=== PATIENT | male | born 1985 | race Two or more races ===

== ENCOUNTER 2020-02-27 07:00 | Day surgery (SDC) | payer SELFPAY ==
[2020-02-27] MEDS ORDERED: Lidocaine 1% 30 ML SDV ONE (07:03)
[2020-02-27] MEDS ORDERED: Bupivacaine 0.5% 30 ML SDV ONE (07:03)
[2020-02-27] MEDS ORDERED: Sodium Chloride 0.9% 10 ML Syringe FLUSH PRN (07:38)
[2020-02-27] MEDS ORDERED: Lidocaine 1%/Sod Bicarbonate in NS 8.4% 1 ML Syringe IDERM PRN (07:38)
[2020-02-27] MEDS ORDERED: Lactated Ringers 1,000 ML IV SCH (07:45)
--- NOTE | 2020-02-27 07:52 | PCM.PREANE ---
Preanesthetic Assessment - Anesthesia/Transfusion/Family Hx Anesthesia History: No Prior Anesthesia - Review of Systems General: No Symptoms Pulmonary: No Symptoms Cardiovascular: No Symptoms Gastrointestinal: No Symptoms Neurological: No Symptoms Other: Reports: None - Physical Assessment NPO Status Date: 02/26/20 NPO Status Time: 19:30 Vital Signs: Last Vital Signs Temp 97.1 F 02/27/20 06:55 Pulse 88 02/27/20 06:55 Resp 16 02/27/20 06:55 BP 129/83 02/27/20 06:55 Pulse Ox 97 02/27/20 06:55 Height: 1.73 m Weight: 151.046 kg ASA Class: 3 Mental Status: Alert & Oriented x3 Airway Class: Mallampati = 1 Dentition: Reports: Normal Dentition Thyro-Mental Finger Breadths: 3 Mouth Opening Finger Breadths: 3 ROM/Head Extension: Full Lungs: Clear to Auscultation, Normal Respiratory Effort Cardiovascular: Regular Rate, Regular Rhythm - Allergies Allergies/Adverse Reactions: Allergies Allergy/AdvReac Type Severity Reaction Status Date / Time No Known Allergies Allergy Verified 02/27/20 07:38 - Acknowledgements Anesthesia Type Planned: General Anesthesia, Regional Block (popliteal), MAC Pt an Appropriate Candidate for the Planned Anesthesia: Yes Alternatives and Risks of Anesthesia Discussed w Pt/Guardian: Yes Pt/Guardian Understands and Agrees with Anesthesia Plan: Yes PreAnesthesia Questionnaire Endocrine/Metabolic History: Reports: Obesity/BMI 30+ (Morbid obesity) - SUBSTANCE USE Smoking Status *Q: Current Every Day Smoker - CURRENT (IN HOUSE) MEDS Current Meds: Current Medications Lactated Ringer's (Ringers, Lactated) 1,000 mls @ 125 mls/hr IV ASDIRECTED DESMOND Stop: 02/27/20 23:00 Lidocaine/Sodium Bicarbonate (Buffered Lidocaine 1% In Ns 8.4%) 0.25 ml IDERM ONETIME PRN PRN Reason: Prior to IV Start Stop: 02/27/20 18:00 Sodium Chloride (Saline Flush) 10 ml FLUSH ASDIRECTED PRN PRN Reason: Keep Vein Open Stop: 02/27/20 18:00 Discontinued Medications Bupivacaine HCl (Marcaine 0.5%) Confirm Administered Dose 30 ml .ROUTE .STK-MED ONE Stop: 02/27/20 07:04 Lidocaine HCl (Xylocaine-Mpf 1%) Confirm Administered Dose 30 ml .ROUTE .STK-MED ONE Stop: 02/27/20 07:04
[2020-02-27] MEDS ORDERED: fentaNYL 100 MCG/2 ML SDV IVPUSH PRN (09:05)
[2020-02-27] MEDS ORDERED: HYDROmorphone 0.5 MG/0.5 ML Syringe IVPUSH PRN (09:05)
--- NOTE | 2020-02-27 09:14 | PCM.PRNOTE ---
- Free Text/Narrative Note: Postoperative regional pain control requested by surgeon. Pre-op Dx: Left big toe bunion Surgery : Left lapidus bunionectomy,Left 5th Tailor's bunionectomy, Lt 2nd osteotomy with hammertoe correction and K-wires Anesthesia Procedure: Left Popliteal block with U/S guidance Requesting physician: Dr. Dennis Hernandez Risks and benefits discussed with the patient preoperatively including infection, bleeding, incomplete or failed block, possible nerve damage, local anesthetic toxicity. Chart reviewed, VS stable. Permit signed. Patient in PACU holding area, stable , alert and awake. Time out performed at 07:30. Oxygen 3L via NC. Left lateral thigh area above the knee was prepped with Chloraprep x 1 and allowed to dry. Midazolam IV 4 mg given incrementally. Under aseptic technique, the Left common peroneal and Left tibial nerves were identified under ultrasound prior to needle insertion. Local infiltration with 1% Lidocaine. 4" Stimuplex needle #22 G was inserted under US guidance. Neuromuscular response was elicited with noted foot twitch at 0.6 mA. Under direct visualization of needle tip the injection of 0.5% Ropivacaine with 1:200k epinephrine, with added 6 mg of Dexamethasone and 100 mcg of Clonidine, total of 36 mls in divided doses, maintaining negative aspiration was completed without problems. No local anesthetic toxicity was noted. Patient is awake, stable and tolerated the procedure well. Please see attached U/S images Times: Time out 07:30 Start 07:32 Stop: 07:45
--- NOTE | 2020-02-27 11:43 | PCM.OPNOTE ---
- General Post-Op/Procedure Note Date of Surgery/Procedure: 02/27/20 Operative Procedure(s): 1.) Lapidus Bunionectomy with internal fixation plate, screws, LEFT 1st M-C joint. 2.) Yariel Osteotomy & internal fixation, LEFT 2nd metatarsal. 3.) Arthroplasty LEFT 2nd PIPJ with K-wire fixation. 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 2.) Subluxation, LEFT 2nd toe @ MTPJ. 3.) Hammertoe deformity, LEFT 2nd toe. 4.) Tailor's Bunion deformity, LEFT 5th MTPJ Anesthesia Technique: General LMA, Local, Regional Block Primary Surgeon: Dennis Hernandez II Anesthesia Provider: Jose Guadalupe Dodd EBAnibal in mLs: 200 Condition: Good Free Text/Narrative:: Patient left the OR for recovery with vital signs stable & vascular status intact to digits 1-5 LEFT foot.
--- NOTE | 2020-02-27 11:51 | PCM.POSTAN ---
POST ANESTHESIA ASSESSMENT - MENTAL STATUS Mental Status: Alert, Oriented - VITAL SIGNS Vital Signs: Last Vital Signs Temp 97.9 F 02/27/20 11:39 Pulse 74 02/27/20 07:50 Resp 20 02/27/20 11:39 BP 113/85 02/27/20 11:39 Pulse Ox 94 L 02/27/20 11:39 - RESPIRATORY Respiratory Status: Respiratory Rate WNL, Airway Patent, O2 Saturation Stable, Supplemental Oxygen - CARDIOVASCULAR CV Status: Pulse Rate WNL, Blood Pressure Stable - GASTROINTESTINAL GI Status: No Symptoms - PAIN Pain Score: 0 - POST OP HYDRATION Hydration Status: Adequate & Stable
--- NOTE | 2020-02-27 13:23 | PCM48HPAN ---
Post Anesthesia Note - EVALUATION WITHIN 48HRS OF ANESTHETIC Vital Signs in Normal Range: Yes Patient Participated in Evaluation: Yes Respiratory Function Stable: Yes Airway Patent: Yes Cardiovascular Function Stable: Yes Hydration Status Stable: Yes Pain Control Satisfactory: Yes Nausea and Vomiting Control Satisfactory: Yes Mental Status Recovered: Yes Vital Signs: Last Vital Signs Temp 98.3 F 02/27/20 12:22 Pulse 95 02/27/20 12:59 Resp 16 02/27/20 12:59 BP 110/67 02/27/20 12:59 Pulse Ox 93 L 02/27/20 12:22 - COMMENTS/OBSERVATIONS Free Text/Narrative:: No anesthesia complications noted. Patient is ready to be discharged
--- NOTE | 2020-02-27 18:23 | OR ---
DATE OF OPERATION: 02/27/2020 SURGEON: Dennis Hernandez II, DPM LOCATION: [facility]. ANESTHESIA: LMA general with regional and local block about the left lower extremity. ANESTHESIA PROVIDER: Jose Guadalupe Dodd CRNA HEMOSTASIS: Left pneumatic thigh tourniquet at 350 mmHg pressure. PREOPERATIVE DIAGNOSIS: 1. Painful symptomatic severe hallux abductovalgus, bunion deformity; left foot. 2. Painful symptomatic hammertoe deformity, left second toe, with dislocation at the metatarsophalangeal joint. 3. Painful symptomatic tailor's bunion deformity, left fifth metatarsal. POSTOPERATIVE DIAGNOSIS: 1. Painful symptomatic severe hallux abductovalgus, bunion deformity; left foot. 2. Painful symptomatic hammertoe deformity, left second toe, with dislocation at the metatarsophalangeal joint. 3. Painful symptomatic tailor's bunion deformity, left fifth metatarsal. OPERATION PERFORMED: 1. Lapidus bunionectomy with internal plate and screw fixation, left first metatarsocuneiform joint. 2. Yariel osteotomy, left second metatarsal, with internal fixation, left foot. 3. Arthroplasty, left second toe, with proximal interphalangeal joint arthrodesis and K-wire stabilization. 4. Tailor's bunionectomy, left fifth metatarsophalangeal joint. DESCRIPTION OF PROCEDURE: Upon arrival on admission to the hospital, the patient was examined and cleared for surgery by the assigned anesthesia provider. IV access was obtained in the preoperative area after which the patient was brought to the operating room having received 3 g of Ancef IV piggyback. The patient was then assisted with transfer from a gurney onto the operating room table in the supine position. Popliteal block with 30 mL ropivacaine was administered to the left lower extremity by Anesthesia with utilizing an ultrasound-guided image. The patient was given a combination of sedations and was adequately sedated before being intubated for LMA general anesthesia. The patient received 10 mL of 1:1 mixture 1% lidocaine plain and 0.5% Marcaine plain injected about the operatory sites in the form of a local infiltrative block about the left foot. The left lower extremity was then wrapped with cotton Webril padding about the left thigh where a large pneumatic thigh tourniquet was placed. The left lower extremity was then prepped and draped in usual aseptic manner. Left lower extremity was then elevated and exsanguinated with the use of an Esmarch bandage before inflating the pneumatic ankle tourniquet to 350 mmHg pressure. Esmarch bandage was removed. Left lower extremity was placed to back to the level of the operating room table. Attention was first directed to the first metatarsophalangeal joint where an incision beginning at that point was then carried proximally overlying the first metatarsocuneiform joint. This was a controlled depth skin incision taken down to the level of subcutaneous structures with care taken to retract the vital neurovascular structures within the area as well as to cauterize and/or ligate all superficial bleeders as deemed necessary. Continuous soft tissue dissection was then taken down to the first metatarsophalangeal joint and the procedural decompression as well as removal of the adhesive sesamoids was undertaken utilizing a McGlamry scoop elevator after adequate soft tissue dissection was undertaken and a linear capsulotomy paralleling that of the skin was performed as well. A lateral capsular release was done after dissection of the first interspace and release of the adductor tendon was taken care of at the base of the proximal phalanx of the hallux. After this had been sufficiently performed, the wound was copiously lavaged with sterile saline solution and the medial eminence to the first metatarsal was then resected. Attention was then directed to the first metatarsocuneiform joint where a transverse incision allowed for exposure of this joint, which was then resected with a power sagittal saw and also corrected to reduce the intermetatarsal angle between the first and second metatarsals. The base of these resected surfaces was then fenestrated with a 0.062 K-wire Steinmann pin to fenestrate the plantar surface and the articular cartilage and stimulate subchondral bleeding. After this had been finished, the wound was once again copiously lavaged with sterile saline solution and reduction was achieved with a tenaculum while a 0.062 wire was utilized to hold the corrected position. An Coleman CP plate was selected and was placed about the arthrodesis site while a small recessed hole was created into the medial aspect of the first metatarsal to allow for the plate to sit comfortably up to bone. The lag screw was then inserted after proximal locking screws had been placed to bring about rigid internal fixation compression. An additional amount of IM correction was achieved by utilizing a cannulated headless fixation screw from medial to lateral across the distal aspect of the first and second metatarsals. The wound was once again copiously lavaged with sterile saline solution and attention was directed to the left second toe where a curvilinear incision was created overlying the left second PIPJ and carried distally by a centimeter to the second MTPJ. These were controlled depth skin incisions taken down to the level of the subcutaneous structures with care taken to retract the vital neurovascular structures within the area as well as to cauterize and/or ligate all superficial bleeders as deemed necessary. Continuous soft tissue dissection was then taken down to the MTPJ and after the extensor digitorum longus tendon was released at the PIPJ and dissected proximally, then the head of the proximal phalanges in the base of the intermediate phalanges were resected with the power sagittal saw. Likewise, a McGlamry scoop elevator was utilized to free up plantar soft tissue adhesions to the left second metatarsal head and a Yariel osteotomy was created and then fixated with a 2.5 cannulated screw measuring 12 mm across the screw site. Once again, the wound was copiously lavaged with sterile saline solution and closure was then undertaken with the use of 3-0 and 4-0 Vicryl in the deep and subcuticular layer while the skin would be reapproximated utilizing gem. A 4 cm curvilinear incision was created over the lateral aspect of the left fifth metatarsophalangeal joint and a controlled depth skin incision was taken down to the level of the subcutaneous structures with care taken to retract the vital neurovascular structures within the area as well as to cauterize and ligate all superficial bleeders as deemed necessary. Continuous soft tissue dissection was then taken down to the level of the tibial capsular structures where a lateral eminence to the fifth metatarsal head was resected. The wound was copiously lavaged with sterile saline solution and the wound site was then reapproximated utilizing 3-0 Vicryl. The skin and subcuticular levels to all incisions were then reapproximated utilizing 4-0 Vicryl and the skin was reapproximated utilizing gem and/or 4-0 nylon. The patient received an additional 30 mL of 0.5% Marcaine plain injected about the operatory site. The dressings would then consist of Betadine-soaked Adaptic gauze, 4 x 4 gauze, Radha, and they were in place after deflation of the pneumatic thigh tourniquet after 100 minutes of anesthesia. The patient would then leave the OR with vital signs remaining stable and vascular status intact in digits 1 through 5 of the left foot. There were no apparent or obvious complications. The patient received no written or oral postop instructions as well as postoperative pain medications. The patient will be nonweightbearing with crutches and a posterior splint was placed about the left lower extremity prior to the patient leaving the OR. In the OR, the patient calculated 200 mL of estimated blood loss. There were no apparent or obvious complications. ESTIMATED BLOOD LOSS: MMODAL /[id number]
== END 2020-02-27 13:43 | disposition home or self-care (01) ==
LOC: JD.SDS 07:00
PROVIDERS: ATTEND Podiatrist Foot & Ankle Surgery
DX: M20.12 Hallux valgus (acquired), left foot (principal); M20.42 Other hammer toe(s) (acquired), left foot; S93.125A Dislocation of metatarsophalangeal joint of left lesser toe(s), initial encounter; M21.622 Bunionette of left foot; F17.210 Nicotine dependence, cigarettes, uncomplicated; E66.9 Obesity, unspecified; X58.XXXA Exposure to other specified factors, initial encounter
CPT/HCPCS: 28110; 28285; 28297; 28308; C1713; J2001; J3490; J7120; 01480; 64450; J0690; J0735; J1100; J2250; J2405; J2704; J2795; J3010